=== PATIENT | female | born 1965 | race Caucasian/White ===

== ENCOUNTER 2025-04-05 18:42 | Inpatient (IN) | payer MEDICAID ==
[~2025-04-05] VITALS: Ht 175.3 cm; Wt 73.0 kg
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
[2025-04-05 19:30] LABS: MEAN PLATELET VOLUME 7.0 FL (7.4-10.4); RED CELL DISTRIBUTION WIDTH 21.2 % (11.5-14.5)
--- NOTE | 2025-04-05 19:30 | RADIOLOGY REPORT ---
CLINICAL HISTORY: CP TECHNIQUE: Single view of the chest was obtained. COMPARISON: None FINDINGS: The heart size and pulmonary vasculature are normal. The lungs are clear. There is thoracolumbar fusion hardware. IMPRESSION: NO ACUTE CARDIOPULMONARY PROCESS.
[2025-04-05 19:43] LABS: CREATININE 0.41 MG/DL (0.40-0.90); PRO BRAIN NATRIURETIC PEPTIDE 59 PG/ML (0-125); TOTAL CARBON DIOXIDE 28.2 MMOL/L (24-32); eCRCL 154 ML/MIN; eGFR > 90 ML/MIN
[2025-04-05] MEDS ORDERED: PIOG15TA8 PO (20:06)
[2025-04-05] MEDS ORDERED: CYCL-394 PO (20:06)
[2025-04-05] MEDS ORDERED: POLY17PO10 PO (20:06)
[2025-04-05] MEDS ORDERED: FOLI0.4T6 PO (20:06)
[2025-04-05] MEDS ORDERED: CYAN-34 PO (20:06)
[2025-04-05] MEDS ORDERED: VENL37.59 PO (20:06)
[2025-04-05] MEDS ORDERED: LANTUS SQ (20:06)
[2025-04-05] MEDS ORDERED: PREG50CA PO (20:06)
[2025-04-05] MEDS ORDERED: ATOR10TA87 PO (20:06)
[2025-04-05] MEDS ORDERED: [UNRECOGNIZED DRUG - CODE] PO (20:06)
[2025-04-05] MEDS ORDERED: SENN-360 PO (20:06)
[2025-04-05] MEDS ORDERED: PANT-47 PO (21:05)
[2025-04-05] MEDS ORDERED: OXYC-658 PO (21:05)
[2025-04-05] MEDS ORDERED: DOCO1CAP11 (21:05)
[2025-04-05] MEDS ORDERED: magnesium hydroxide 30ml (MOM) UD suspension PO PRN (22:00)
[2025-04-05] MEDS ORDERED: magnesium sulf-water 2g/50mL 50 ML IV PRN (22:00)
[2025-04-05] MEDS ORDERED: mag hydrox/Alum hydrox/simeth 30ml oral suspension PO PRN (22:00)
[2025-04-05] MEDS: PERFLUTREN PROTEIN-A MICROSPHR (Optison) 0.22 MG/ML 3ML VIAL IV ONE (22:00)
[2025-04-05] MEDS ORDERED: potassium Cl 20 mEq SR tablet PO PRN ×2 (22:00)
[2025-04-05] MEDS ORDERED: magnesium Cl slow-release 64mg tablet PO PRN (22:00)
[2025-04-05] MEDS ORDERED: potassium Cl 40MEQ/1/2NS 520ml 520 ML IV PRN (22:00)
[2025-04-05] MEDS ORDERED: ondansetron/PF 4mg/2ml inj IV PRN (22:00)
[2025-04-05] MEDS ORDERED: magnesium sulf-water 4G/100mL 100 ML IV PRN (22:00)
[2025-04-05 23:15] VITALS: RESP 15; O2SAT 96
[2025-04-05] MEDS ORDERED: metoprolol tartrate 1mg/ml inj IV PRN (23:20)
[2025-04-05] MEDS ORDERED: aminophylline 250mg/10ml inj. IV PRN (23:20)
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
[2025-04-05 23:55] VITALS: BP 129/54; PULSE 73; TEMP 96.6; O2SAT 96
[2025-04-05] MEDS: normal saline 1000ml 1,000 ML IV SCH (23:55)
[2025-04-06] VITALS (15 sets, daily range): BP systolic 106–140; BP diastolic 50–83; PULSE 70–94; RESP 14–18; TEMP 97.4–98.5; O2SAT 95–100
[2025-04-06] MEDS: oxyCODONE IR 5mg (immed. release) tablet PO PRN (00:09)
[2025-04-06] MEDS ORDERED: glucagon, human recombinant 1mg kit SUBCUT PRN (04:25)
[2025-04-06] MEDS ORDERED: dextrose 50%-water 50ml dispensing syringe IV PRN ×2 (04:25)
[2025-04-06] MEDS ORDERED: DEXTROSE 15 GM of carb/4 tabs (each vial/BOTTLE has 4 tablets) PO PRN ×2 (04:25)
--- NOTE | 2025-04-06 06:12 | ELECTROCARDIOGRAPH REPORT ---
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
[2025-04-06] MEDS: INSULIN LISPRO 100 UNIT/ML INSULN.PEN MULTI-DOSE SQ SCH (07:00)
[2025-04-06 07:22] LABS: % IRON SATURATION 12 % (11-46); MEAN PLATELET VOLUME 7.3 FL (7.4-10.4); RED CELL DISTRIBUTION WIDTH 21.3 % (11.5-14.5)
[2025-04-06] MEDS: K and/or MAG REPLACEMENT MC SCH (08:00)
[2025-04-06] MEDS: docusate sod 250mg capsule PO SCH (08:00)
[2025-04-06] MEDS: heparin, porcine 5000 units/ml vial SQ SCH (08:00)
[2025-04-06] MEDS: insulin glargine (Lantus) pen - multi-dose SQ SCH (08:00)
[2025-04-06 08:02] LABS: CREATININE 0.32 MG/DL (0.40-0.90); TOTAL CARBON DIOXIDE 27.4 MMOL/L (24-32)
[2025-04-06 08:03] LABS: CHOL/HDL RATIO 2.5 (0.00-4.99); LDL CHOLESTEROL 45 MG/DL (50-100); eCRCL 198 ML/MIN; eGFR > 90 ML/MIN
[2025-04-06] MEDS: regadenoson 0.4mg/5ml syringe IV PRN (09:04)
[2025-04-06] MEDS: docusate sod 100mg capsule PO SCH (10:43)
[2025-04-06] MEDS: cyanocobalamin 500mcg tablet PO SCH (10:43)
[2025-04-06] MEDS: carvedilol 6.25mg tablet PO SCH (10:44)
[2025-04-06] MEDS: venlafaxine XR 37.5mg cap (Q24H) PO SCH (10:44)
[2025-04-06] MEDS: pantoprazole 40mg Tablet.DR PO SCH (10:45)
[2025-04-06] MEDS: polyethylene glycol 3350 17gm powd pack PO SCH (10:46)
--- NOTE | 2025-04-06 10:58 | RADIOLOGY REPORT ---
Reason for study/Clinical History: Chest pain, risk for ACS Comparison Study: None Myocardial Perfusion Study with SPECT Technique: The patient received an intravenous injection of 8.9 mCi of technetium-99m Sestamibi while at rest. After a short delay, SPECT tomographic images of the heart were obtained. The patient then went to the stress lab where they received an intravenous Lexiscan utilizing standard protocol. 34.2 mCi of technetium-99m Sestamibi was injected intravenously immediately after the start of the infusion. Gated SPECT tomographic images of the heart were acquired and processed. Findings: There are diffuse mild reversible defects present throughout the left ventricle most prominent in the anterior wall, septal wall and apex. Left ventricular ejection fraction is 34% Impression: Examination is extremely limited secondary to extensive artifact. There are diffuse mild reversible defects present throughout the left ventricle most prominent in the anterior wall, septal wall and apex. This may represent ischemia versus artifact. Clinical correlation advised.
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
--- NOTE | 2025-04-06 16:23 | PROGRESS NOTE- Residence ---
Progress Note - Resident Providers to CC Resident Creating Document: TOM SHARP, RES ~ Central Line/PICC still needed: N\A Antibiotic Timeout Antibiotic Ordered?: No Subjective Patient was examined bedside after Lexiscan. No complications after the stress test. Resting comfortably. She had mild pain 2/10 through the night. Objective Vital Signs Date Time Temp Pulse Resp B/P (MAP) Pulse Ox O2 Delivery O2 Flow Rate FiO2 04/06/25 13:44 14 04/06/25 11:00 98.1 78 116/62 (80) 95 Room Air 04/06/25 08:00 0.0 21 Result Diagram: 04/06/2562704/06/25627 Awake , alert, and oriented x4, resting comfortably in the bed, in no acute distress HEENT: Atraumatic, normocephalic, EOMI, anicteric sclera ; pale conjunctiva Neck: Trachea midline. Supple, full range of motion, no JVD Cardiac: Regular rhythm, regular rate with no murmurs all over the precordium. Respiratory: Equal breath sounds bilaterally, no tachypnea, no wheezing ,rub or rales, Chest wall is symmetric and without deformity. Gastrointestinal: Abdomen symmetric, non-distended, soft, non-tender, normal bowel sounds x4 quadrant, normoactive, no hepatosplenomegaly Musculoskeletal: No pedal edema, no cyanosis, atrophic bilateral lower extremities Sacral wound was present with dressing in place, a pressure ulcer was also noticed on left heel and lateral side of the right lower extremity Neurological: Mental status exam: alert and consciousness, orientation, memory, speech - Cranial nerve test: Cranial nerves 2-12 intact - Motor system: Upper extremities: Tone 3+, Power 5/5, no involuntary movements Lower extremities: Paralysis present, no voluntary movement, spastic muscle tone - Sensory system: Lower limbs-loss of sensation noticed - Reflex testing: Hyperactive - gait: Wheelchair-bound Plan Plan 1. Atypical chest pain most likely unstable angina MATTHEW score 1, andres score 97 59-year-old paraplegic female with mild intermittent chest pain (2/10), radiating to left arm. Serial troponins are negative. ECG shows mild ST elevation <1 mm in V2 and T-wave inversion in aVR, which are minor/non-diagnostic, but could reflect subtle ischemia normal with ejection fraction of 60%, RVSP 41 mmHg Stress test: As interpreted by Dr. Michelle was negative Plan: Medical management with aspirin 81 mg, carvedilol 6.25 mg, and atorvastatin Repeat ECG with any recurrence of pain Continue home medication atorvastatin 10 mg p.o. HS, aspirin 81 mg daily and carvedilol 6.25 mg b.i.d, atorvastatin 10 mg p.o. h.s. Symptom management: PRN nitroglycerin if pain increases, provided BP is safe 2. Chronic Paraplegia / Immobility Longstanding paralysis; high risk for autonomic dysreflexia, pressure ulcers, and VTE Plan: Continue VTE prophylaxis (heparin SQ). Ensure pressure relief measures and regular skin inspection Continue wound care 3. Sacral Pressure Ulcers / Colostomy Non-healing sacral wounds post-colostomy; risk of local infection or osteomyelitis Plan: Wound care consult for ongoing management Examine sacral wounds and stoma for erythema, drainage, or purulence Consider wound culture if infection suspected Labs: ESR 45, CRP 1.29, ordered wound culture. Imaging (MRI sacrum) if osteomyelitis suspected 4. Microcytic Anemia Likely iron deficiency (Hgb 10.2, MCV 74.6, RDW 21.2). Plan: Iron 31, TIBC percentage saturation normal. Started oral iron supplement 5. Insulin-dependent diabetes mellitus-type 2 Elevated glucose (159 mg/dL) and A1C 8.1% indicates poorly controlled diabetes. Plan: Monitor blood glucose AC/HS. Lantus 12 units with moderate sliding scale insulin Nutrition consult for diabetes management. Continue pregabalin 50 mg p.o. q.12h and folic acid 0.4 mg p.o. daily 6. VTE Risk Assessment: Chronic immobility causing high VTE risk Plan: Continue pharmacologic prophylaxis Evaluate for DVT/PE if clinical suspicion arises (new leg swelling, pain, tachycardia, hypoxia) 7. Social / Functional Lives at home with roommate; son temporarily assisting. She woke up consulted for ongoing support and coordination of wound care and follow-up care 8. Depression: Continue venlafaxine 37.5 mg p.o. daily 9. Constipation: Continue senna 8.6 mg p.o. daily, docusate 250 mg PO TID, MiraLax 1 packet p.o. b.i.d. DVT Prophylaxis: Heparin SQ Line/tubes: Piv GI Prophylaxis: Protonix Nutrition: Healthy diet PT: Ordered Prognosis: Guarded Tom Shivamadhu Internal Medicine, PGY1 [facility] Date of Service: Apr 06, 2025 Billing Provider: JED BRIAN MD Common Visit Codes: [id number] INP/OBS CARE(HIGH) TOM SHARP, RES Apr 06, 2025 16:23 JED BRIAN MD Apr 06, 2025 22:58
[2025-04-06] MEDS: JUVEN Smoothie Arginine/Glut./Ca2+Bmb (Juven 19.3pkt) 240ml cup PO SCH (17:30)
--- NOTE | 2025-04-06 18:47 | CARDIOLOGY REPORT ---
APPROVED REPORT EXAM: Comprehensive 2D, Doppler, and color-flow Echocardiogram. 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 161.7 cm/s AoV VTI 30.6 cm AO Peak GR. 10.5 mmHg AO Mean GR. 5 mmHg LVOT VTI 28.75 cm LVOT Peak Bhargav. 136.8 cm/s MARCOS(VTI)/BSA 2.97 cm2/m2 MARCOS (VTI) 2.97 cm2 AV DI 0.94 % Mitral Valve MV E Velocity 76.3 cm/s MV Peak Gr. 3 mmHg MV DECEL TIME 224 ms MV A Velocity 73.8 cm/s MV PHT 56 ms E/A Ratio 1.0 MVA (PHT) 3.93 cm2 MV VMax 89.4 cm/s TDI Medial E' P. V 8.14 cm/s E/Medial E' 9.4 Tricuspid Valve TR P. Velocity 279 cm/s RAP ESTIMATE 10 mmHg TR Peak Gr. 31 mmHg RVSP 41 mmHg Pulmonary Vein S1 Velocity 57.7 cm/s D2 Velocity 47.4 cm/s PVa Velocity 27.5 cm/s PVa Duration 80 msec LEFT VENTRICLE Normal LV size and wall thickness. Overall systolic function is normal. LVEF is 60%. RIGHT VENTRICLE RV appears normal in size and function. RVSP is estimated at 41 mmHG. ATRIA The left atrium size is normal. AORTIC VALVE Trileaflet AV appears sclerotic without stenosis. No insufficiency. MITRAL VALVE MV is thickened with no annular calcification and no stenosis. Trace mitral regurgitation. TRICUSPID VALVE The tricuspid valve is normal in structure. Trace tricuspid regurgitation. PULMONIC VALVE The pulmonary valve is normal in structure. Trace pulmonic insufficiency. GREAT VESSELS The aortic root is normal in size. The IVC is normal in size and collapses >50% with inspiration. PERICARDIUM There is no pericardial effusion. Other Information Study Quality: Adequate Conclusion Normal LV size and wall thickness. Overall systolic function is normal. LVEF is 60%. RV appears normal in size and function. RVSP is estimated at 41 mmHG. The left atrium size is normal. Trileaflet AV appears sclerotic without stenosis. No insufficiency. MV is thickened with no annular calcification and no stenosis. Trace mitral regurgitation. The tricuspid valve is normal in structure. Trace tricuspid regurgitation. The pulmonary valve is normal in structure. Trace pulmonic insufficiency. There is no pericardial effusion.
[2025-04-07 02:00] VITALS: BP 103/60; PULSE 69; RESP 18; TEMP 97.4; O2SAT 95
[2025-04-07 05:59] LABS: MEAN PLATELET VOLUME 6.9 FL (7.4-10.4); RED CELL DISTRIBUTION WIDTH 20.8 % (11.5-14.5)
[2025-04-07 06:00] VITALS: BP 126/75; PULSE 68; RESP 12; TEMP 97.2; O2SAT 97
[2025-04-07 06:15] LABS: CREATININE 0.33 MG/DL (0.40-0.90); TOTAL CARBON DIOXIDE 26.8 MMOL/L (24-32); eCRCL 192 ML/MIN; eGFR > 90 ML/MIN
[2025-04-07 10:00] VITALS: BP 122/66; PULSE 73; RESP 16; TEMP 98.4; O2SAT 98
--- NOTE | 2025-04-07 12:29 | RADIOLOGY REPORT ---
CLINICAL INDICATION: Pain while lifting the arm of the head, mild swelling TECHNIQUE: 2 radiographic views of the left shoulder were obtained. Comparison: None FINDINGS/IMPRESSION: There is no evidence of acute fracture or dislocation. The visualized joint space is well maintained. The alignment is anatomical. There is no radiopaque foreign body.
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
== END 2025-04-07 17:53 | DRG 203 ==
LOC: ER 18:43 → ED HOLD 20:51 → PCU 3S 22:19 → ORTHO 4S 04-07 01:45
PROVIDERS: ADMIT Internal Medicine; ATTEND Internal Medicine
PROC: 4A02XM4 Measurement of Cardiac Total Activity, External Approach (ICD-10-PCS; principal; 2025-04-06)
PROC: 3E033HZ Introduction of Radioactive Substance into Peripheral Vein, Percutaneous Approach (ICD-10-PCS; 2025-04-06)
DX: R07.89 Other chest pain (principal); L89.159 Pressure ulcer of sacral region, unspecified stage; G82.20 Paraplegia, unspecified; E78.5 Hyperlipidemia, unspecified; E11.9 Type 2 diabetes mellitus without complications; D50.8 Other iron deficiency anemias; F32.A Depression, unspecified; K59.09 Other constipation; F17.210 Nicotine dependence, cigarettes, uncomplicated; F15.10 Other stimulant abuse, uncomplicated; Z93.3 Colostomy status; Z79.4 Long term (current) use of insulin; Z79.899 Other long term (current) drug therapy; Z99.3 Dependence on wheelchair
CPT/HCPCS: 36415; 71045; 73030; 78452; 80048; 80053; 80061; 82607; 82728; 82948; 83036; 83540; 83550; 83735; 83880; 84443; 84484; 85025; 85651; 86140; 87040; 87081; 93005; 93017; 93306; 99285; A4421; A5200; A6209; A6212; A6213; A6253; A6258; A6446; A6449; A9500; G0378; J1644; J1815; J2785; J7030